=== PATIENT | female | born 1925 | race Caucasian/White ===

== ENCOUNTER → 2016-09-01 | Outpatient (CLI) | payer MEDICARE, OTHER ==
[~2016-09-01] VITALS: Ht 149.9 cm; Wt 48.5 kg
[~2016-09-01] MED LIST: ASPI-1093 PO; BIMA12.5OS; CALC500T62 PO; CYAN1000I IM; CYAN1TAB44 PO; DONE5TAB PO; DSS100 PO; FENO145T PO; FISH1CAP50 PO; FLUT16H; HYDR500C2 PO; IPRA4AER IH; LEVO75 PO; LORA10TA7 PO; METO-323 PO; MULT-1259 PO; OMEP20 PO; RISE35TA8 PO; ROSU20 PO; VALS160T2 PO; VITAD50000 PO
[2016-09-01 10:15] VITALS: BP 114/60
== END | disposition home or self-care (01) ==
LOC: SRCNTR 10:08
PROVIDERS: ATTEND Internal Medicine Cardiovascular Disease
DX: I10 Essential (primary) hypertension (principal); J44.9 Chronic obstructive pulmonary disease, unspecified; D64.9 Anemia, unspecified; E78.5 Hyperlipidemia, unspecified; D47.3 Essential (hemorrhagic) thrombocythemia; M19.90 Unspecified osteoarthritis, unspecified site; F03.90 Unspecified dementia, unspecified severity, without behavioral disturbance, psychotic disturbance, mood disturbance, and anxiety
CPT/HCPCS: G0463

== ENCOUNTER → 2016-10-27 | Outpatient (CLI) | payer MEDICARE, OTHER ==
[~2016-10-27] VITALS: Ht 152.4 cm; Wt 49.5 kg
[~2016-10-27] MED LIST changes: -CALC500T62 PO; -CYAN1000I IM; -FISH1CAP50 PO; -IPRA4AER IH
[2016-10-27 10:30] VITALS: BP 117/80
== END | disposition home or self-care (01) ==
LOC: SRCNTR 10:21
PROVIDERS: ATTEND Internal Medicine Cardiovascular Disease
DX: I10 Essential (primary) hypertension (principal); J44.9 Chronic obstructive pulmonary disease, unspecified; D64.9 Anemia, unspecified; M19.90 Unspecified osteoarthritis, unspecified site; F03.90 Unspecified dementia, unspecified severity, without behavioral disturbance, psychotic disturbance, mood disturbance, and anxiety; D47.3 Essential (hemorrhagic) thrombocythemia
CPT/HCPCS: G0463

== ENCOUNTER → 2016-12-29 | Outpatient (CLI) | payer MEDICARE, OTHER ==
[~2016-12-29] VITALS: Ht 147.3 cm; Wt 47.5 kg
[2016-12-29 10:28] VITALS: BP 94/57
== END | disposition home or self-care (01) ==
LOC: SRCNTR 10:18
PROVIDERS: ATTEND Internal Medicine Cardiovascular Disease
DX: J44.9 Chronic obstructive pulmonary disease, unspecified (principal); I10 Essential (primary) hypertension; F03.90 Unspecified dementia, unspecified severity, without behavioral disturbance, psychotic disturbance, mood disturbance, and anxiety; M19.90 Unspecified osteoarthritis, unspecified site; D47.3 Essential (hemorrhagic) thrombocythemia; D64.9 Anemia, unspecified
CPT/HCPCS: G0463